=== PATIENT | male | born 1990 | race Two or more races ===

== ENCOUNTER 2018-04-15 03:50 | Emergency (ER) | payer OTHER ==
[~2018-04-15] VITALS: Ht 177.8 cm; Wt 72.6 kg
[2018-04-15 03:50] VITALS: BP 113/61
--- NOTE | 2018-04-15 04:00 | NUR ---
CALLED FOR TRIAGE; NOT IN LOBBY OR OUTSIDE. WILL CHECK A FEW MINUTES IN CASE PT IS IN THE RESTROOM
--- NOTE | 2018-04-15 04:06 | NUR ---
CALLED AGAIN; STILL NOT IN LOBBY
== END 2018-04-15 04:54 | disposition home or self-care (01) ==
LOC: ER 03:50
DX: S67.192A Crushing injury of right middle finger, initial encounter (principal); S60.131A Contusion of right middle finger with damage to nail, initial encounter; W23.0XXA Caught, crushed, jammed, or pinched between moving objects, initial encounter; Y93.89 Activity, other specified; Y92.89 Other specified places as the place of occurrence of the external cause; Y99.8 Other external cause status
CPT/HCPCS: 73130; 99284; A4606; Z7610

== ENCOUNTER 2018-05-19 13:55 | Emergency (ER) | payer OTHER ==
[~2018-05-19] VITALS: Ht 177.8 cm; Wt 72.6 kg
--- NOTE | 2018-05-19 14:02 | NUR ---
A/OX4, NAD. C/O RT ANKLE PAIN S/P SLID DOWN THE STAIRS THIS AM VSS. WILL CONT TO MONITOR
[2018-05-19] MEDS ORDERED: HYDROCODONE/APAP 5/325MG 1 EACH TABLET ONE (14:10)
--- NOTE | 2018-05-19 14:25 | NUR ---
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
[2018-05-19] MEDS ORDERED: HYDROCODONE/APAP 5/325MG 1 EACH TABLET PO ONE (14:30)
[2018-05-19 15:22] VITALS: BP 128/68
== END 2018-05-19 15:23 | disposition home or self-care (01) ==
LOC: ER 13:56
DX: S93.491A Sprain of other ligament of right ankle, initial encounter (principal); X50.1XXA Overexertion from prolonged static or awkward postures, initial encounter; Y93.01 Activity, walking, marching and hiking; Y92.89 Other specified places as the place of occurrence of the external cause; Y99.8 Other external cause status
CPT/HCPCS: 29515; 73610; 99284; A4606; Z7610

== ENCOUNTER 2019-06-20 15:36 | Emergency (ER) | payer MEDICAID, OTHER ==
[~2019-06-20] VITALS: Ht 167.6 cm; Wt 77.1 kg
[2019-06-20 15:43] VITALS: BP 117/67
[2019-06-20] MEDS ORDERED: KETOROLAC TROMETHAMINE INJ 60 MG/2 ML VIAL IM ONE ×2 (16:00→16:04)
[2019-06-20] MEDS ORDERED: CYCLOBENZAPRINE 10 MG TABLET PO ONE (16:00)
[2019-06-20] MEDS ORDERED: DEXAMETHASONE SOD PHOSPHATE 4 MG/ML VIAL IM ONE (16:00)
[2019-06-20] MEDS ORDERED: DEXAMETHASONE SOD PHOSPHATE 10 MG/ML VIAL ONE (16:04)
[2019-06-20] MEDS ORDERED: CYCLOBENZAPRINE 10 MG TABLET ONE (16:04)
[2019-06-20] MEDS ORDERED: NAPROXEN 250 MG TABLET ONE (16:17)
[2019-06-20] MEDS ORDERED: predniSONE 20 MG TABLET ONE (16:17)
--- NOTE | 2019-06-20 16:19 | NUR ---
PATIENT REFUSED DECADRON IM AND TORADOL IM.
[2019-06-20] MEDS ORDERED: HYDROCODONE/APAP 5/325MG 1 EACH TABLET ONE (16:26)
[2019-06-20] MEDS ORDERED: NAPROXEN 250 MG TABLET PO ONE (16:30)
[2019-06-20] MEDS ORDERED: predniSONE 20 MG TABLET PO ONE (16:30)
[2019-06-20] MEDS ORDERED: HYDROCODONE/APAP 5/325MG 1 EACH TABLET PO ONE (16:30)
--- NOTE | 2019-06-20 16:45 | NUR ---
patient denies pain at this time. left in stable condition.
== END 2019-06-20 17:04 | disposition home or self-care (01) ==
LOC: ER 15:36
DX: M54.5 Low back pain (principal)
CPT/HCPCS: 99284; J7512; J1100; J1885